=== PATIENT | female | born 1960 | race Caucasian/White ===

== ENCOUNTER 2023-02-16 09:14 | Emergency (ER) | payer OTHER ==
[~2023-02-16] VITALS: Ht 165.1 cm; Wt 77.1 kg
[2023-02-16 09:27] VITALS: BP 159/80
--- NOTE | 2023-02-16 09:33 | NUR ---
PT W/C ASSISTED TO BED 3
--- NOTE | 2023-02-16 09:48 | NUR ---
62YO FEMALE PT C/O INCREASED L HIP PAIN XYESTERDAY. RADIATION TO L LEG. STATES BEING OUT OF RX PERCOCET GIVEN AFTER RECENT HIP FRACTURE SURGERY 1.5MONTH AGO. STATES MISSING PCP APPT D/T RECENT WEATHER. PT AAOX4, NO VISIBLE DISTRESS. WHEELCHAIR ASSISTED TO ROOM. HX: CHRONIC BACK PAIN, ANXIETY, HTN, EPILEPSY, DC(2008) ALLERGIES: QUETIAPINE
--- NOTE | 2023-02-16 10:10 | NUR ---
MD MONTES AT BEDSIDE FOR EVALUATION
[2023-02-16] MEDS ORDERED: oxyCODONE/APAP 5/325 MG 1 TAB TAB PO ONE (10:15)
[2023-02-16] MEDS ORDERED: KETOROLAC 15 MG/ML VIAL IM ONE (10:15)
[2023-02-16] MEDS ORDERED: KETOROLAC 15 MG/ML VIAL ONE (10:17)
[2023-02-16] MEDS ORDERED: oxyCODONE/APAP 5/325 MG 1 TAB TAB ONE (10:18)
--- NOTE | 2023-02-16 11:00 | NUR ---
Patient does not wish to proceed with medical care recommended by MD MONTES. Patient given information related to possible complications, up to and including , which could occur as a result of leaving hospital at this time. Patient verbalizes understanding of risks involved leaving against medical advice. Patient has signed AMA form.
--- NOTE | 2023-02-16 11:00 | NUR ---
PT REFUSING XRAY " I HAVE TO LEAVE D/T EMERGENCY". AWARE. AMA FORM SIGNED BY PT AND
--- NOTE | 2023-02-16 11:06 | NUR ---
The patient's care was reviewed and supervised by [facility], RN.
== END 2023-02-16 11:00 | disposition left against medical advice (07) ==
LOC: MED 09:14
DX: M25.551 Pain in right hip (principal); M25.552 Pain in left hip; I25.2 Old myocardial infarction; I10 Essential (primary) hypertension; F41.9 Anxiety disorder, unspecified; F32.9 Major depressive disorder, single episode, unspecified; Z98.890 Other specified postprocedural states; Z88.8 Allergy status to other drugs, medicaments and biological substances; W18.39XA Other fall on same level, initial encounter; Y92.89 Other specified places as the place of occurrence of the external cause; Y93.89 Activity, other specified; Y99.8 Other external cause status
CPT/HCPCS: 96372; 99283; J1885

== ENCOUNTER 2023-04-02 19:34 | Emergency (ER) | payer OTHER ==
[~2023-04-02] VITALS: Ht 165.1 cm; Wt 78.9 kg
[2023-04-02 20:00] VITALS: BP 126/97
--- NOTE | 2023-04-02 20:03 | NUR ---
TO LOBBY A/ABED AMBULATORY WITH WALKER
[2023-04-02 21:15] LABS: BASOPHILS % (AUTO) 0.6 % (0.0-2.0); EOSINOPHILS # (AUTO) 0.1 K/uL (0-0.4); EOSINOPHILS % (AUTO) 1.6 % (0.0-4.0); HEMATOCRIT 41.8 % (36-48); HEMOGLOBIN 13.7 g/dL (12.0-16.0); LYMPHOCYTES # (AUTO) 3.1 K/uL (2.5-16.5); LYMPHOCYTES % (AUTO) 43.1 % (20.5-51.1); MEAN CORPUSCULAR HEMOGLOBIN 28 pg (27-31); MEAN CORPUSCULAR HGB CONC 33 g/dL (33-37); MEAN CORPUSCULAR VOLUME 83.6 fL (80-94); MONOCYTES # (AUTO) 0.5 K/uL (0.8-1.0); MONOCYTES % (AUTO) 7.3 % (1.7-9.3); NEUTROPHILS # (AUTO) 3.5 K/uL (1.8-7.7); NEUTROPHILS % (AUTO) 47.4 % (42.2-75.2); PLATELET COUNT (AUTO) 278 K/uL (140-450); RED CELL DISTRIBUTION WIDTH 16.3 % (11.6-13.7); WHITE BLOOD COUNT (AUTO) 7.3 K/uL (4.8-10.8)
[2023-04-02] MEDS ORDERED: MORPHINE SULFATE 4 MG/ML SYR IM ONE (21:15)
[2023-04-02] MEDS ORDERED: ONDANSETRON 4 MG ODT PO ONE (21:15)
--- NOTE | 2023-04-02 21:20 | NUR ---
PT AMBULATE TO ROOM 6
[2023-04-02 21:40] LABS: ALBUMIN 3.8 g/dL (3.4-5.0); ANION GAP 15.4 (8-16); ASPARTATE AMINOTRANSFERASE 19 U/L (15-37); CARBON DIOXIDE 25.3 mmol/L (21-32); CHLORIDE 105 mmol/L (98-107); CREATININE 1.3 mg/dL (0.6-1.3); GFR ARICAN-AMERICAN 53 mL/min (>90); GLUCOSE 104 mg/dL (74-106); LIPASE 209 U/L (73-393); POTASSIUM 4.7 mmol/L (3.5-5.1); SODIUM SERUM 141 mmol/L (136-145); UREA NITROGEN, BLOOD 28 mg/dL (7-18)
--- NOTE | 2023-04-02 21:49 | NUR ---
URINE COLLECTED AND SENT TO LAB
[2023-04-02 21:51] LABS: TOTAL BILIRUBIN 0.4 mg/dL (0.0-1.0)
[2023-04-02 21:57] LABS: APPEARANCE,URINE CLEAR (CLEAR); BILIRUBIN,URINE NEGATIVE (NEGATIVE); BLOOD, URINE NEGATIVE (NEGATIVE); COLOR,URINE YELLOW (YELLOW); LEUKOCYTE ESTERASE ,URINE NEGATIVE (NEGATIVE); NITRITE, URINE NEGATIVE (NEGATIVE); PH,URINE 5.5 (5.0-9.0); UGLUCOSE NEGATIVE (NEGATIVE)
[2023-04-02] MEDS ORDERED: oxyCODONE/APAP 5/325 MG 1 TAB TAB PO ONE (23:30)
[2023-04-03] MEDS ORDERED: BEN10 PO (00:22)
[2023-04-03] MEDS ORDERED: LOPE1TAB14 PO (00:22)
[2023-04-03] MEDS ORDERED: BISM262C52 PO (00:22)
[2023-04-03] MEDS ORDERED: ACET-5629 PO (00:23)
[2023-04-03 00:35] VITALS: BP 126/97
--- NOTE | 2023-04-03 00:37 | NUR ---
Patient discharged with v/s stable. Written and verbal after care instructions given and explained. Patient alert, oriented and verbalized understanding of instructions. Ambulatory with steady gait. All questions addressed prior to discharge. ID band removed. Patient advised to follow up with PMD. Rx of OXYCODONE, PEPTOBISMOL, IMODIUM given. Patient educated on indication of medication including possible reaction and side effects. Opportunity to ask questions provided and answered.
== END 2023-04-03 00:37 | disposition home or self-care (01) ==
LOC: MED 19:34
DX: A08.4 Viral intestinal infection, unspecified (principal); Z20.822 Contact with and (suspected) exposure to COVID-19; I10 Essential (primary) hypertension; I25.10 Atherosclerotic heart disease of native coronary artery without angina pectoris; E03.9 Hypothyroidism, unspecified; F41.9 Anxiety disorder, unspecified; E78.00 Pure hypercholesterolemia, unspecified; Z85.89 Personal history of malignant neoplasm of other organs and systems; Z90.710 Acquired absence of both cervix and uterus
CPT/HCPCS: 36415; 71045; 80053; 81003; 83690; 84484; 85025; 87426; 96372; 99284; J2270; Q0162

== ENCOUNTER 2023-04-20 17:29 | Emergency (ER) | payer OTHER ==
[~2023-04-20] VITALS: Ht 167.6 cm; Wt 78.9 kg
[~2023-04-20 17:29] MED LIST: ACET-5629 PO; BEN10 PO; BISM262C52 PO; LOPE1TAB14 PO
[2023-04-20 18:06] VITALS: BP 109/80
--- NOTE | 2023-04-20 18:23 | NUR ---
ASSUMED CARE , POT C/O ANXIETY N/V, HX LEFT FEMOR FX , PT RAN OUT OF PERCOCET 3 =DAYS AGO , NOW C/PO ANXIETY N/V
[2023-04-20] MEDS ORDERED: oxyCODONE/APAP 5/325 MG 1 TAB TAB PO ONE (18:30)
[2023-04-20] MEDS ORDERED: NACL 0.9% 1,000 ML IV ONE (18:30)
[2023-04-20] MEDS ORDERED: ONDANSETRON 4 MG/2 ML VIAL ONE (18:39)
[2023-04-20] MEDS ORDERED: ONDANSETRON 4 MG/2 ML VIAL IVP ONE (18:40)
[2023-04-20 18:44] LABS: BASOPHILS # (AUTO) 0.1 K/uL (0.00-0.22); BASOPHILS % (AUTO) 0.9 % (0.0-2.0); EOSINOPHILS # (AUTO) 0.1 K/uL (0-0.4); EOSINOPHILS % (AUTO) 1.5 % (0.0-4.0); LYMPHOCYTES # (AUTO) 2.6 K/uL (2.5-16.5); MEAN CORPUSCULAR HEMOGLOBIN 27 pg (27-31); MEAN CORPUSCULAR HGB CONC 34 g/dL (33-37); MEAN CORPUSCULAR VOLUME 81.3 fL (80-94); MONOCYTES # (AUTO) 0.6 K/uL (0.8-1.0); MONOCYTES % (AUTO) 8.5 % (1.7-9.3); NEUTROPHILS # (AUTO) 3.4 K/uL (1.8-7.7); NEUTROPHILS % (AUTO) 51.1 % (42.2-75.2); PLATELET COUNT (AUTO) 318 K/uL (140-450); RED BLOOD CELL COUNT(AUTO) 4.79 MIL/uL (4.20-5.40); RED CELL DISTRIBUTION WIDTH 16.3 % (11.6-13.7); WHITE BLOOD COUNT (AUTO) 6.8 K/uL (4.8-10.8)
[2023-04-20 19:00] LABS: ALBUMIN 3.6 g/dL (3.4-5.0); ANION GAP 13.3 (8-16); ASPARTATE AMINOTRANSFERASE 19 U/L (15-37); CARBON DIOXIDE 27.1 mmol/L (21-32); CHLORIDE 101 mmol/L (98-107); GFR ARICAN-AMERICAN 72 mL/min (>90); GLUCOSE 91 mg/dL (74-106); LIPASE 179 U/L (73-393); POTASSIUM 3.4 mmol/L (3.5-5.1); SODIUM SERUM 138 mmol/L (136-145); TOTAL BILIRUBIN 0.3 mg/dL (0.0-1.0); UREA NITROGEN, BLOOD 25 mg/dL (7-18)
[2023-04-20] MEDS ORDERED: POTASSIUM CHLORIDE 20% 40 MEQ/15 ML UDC PO ONE (19:20)
[2023-04-20] MEDS ORDERED: ACET-5629 PO (19:39)
[2023-04-20] MEDS ORDERED: CLON2TAB PO (19:39)
[2023-04-20] MEDS ORDERED: ONDA-188 SL (19:42)
[2023-04-20] MEDS ORDERED: clonazePAM 0.5 MG TAB PO ONE (20:00)
[2023-04-20 20:15] VITALS: BP 150/72
--- NOTE | 2023-04-20 20:15 | NUR ---
Patient discharged with v/s stable. Written and verbal after care instructions given and explained. New rx klonopin, zofran, percocet. Patient verbalized understanding. Ambulatory with steady gait. Accompanied by home. All questions addressed prior to discharge. Advised to follow up with PMD.
[2023-04-21] MEDS ORDERED: ACET-5629 PO (21:30)
[2023-04-21] MEDS ORDERED: CLON2TAB PO (21:30)
== END 2023-04-20 20:15 | disposition home or self-care (01) ==
LOC: MED 17:29
DX: R11.2 Nausea with vomiting, unspecified (principal); R53.1 Weakness; R05.9 Cough, unspecified; I25.2 Old myocardial infarction; I10 Essential (primary) hypertension; E03.9 Hypothyroidism, unspecified; F41.9 Anxiety disorder, unspecified; E78.5 Hyperlipidemia, unspecified; Z86.69 Personal history of other diseases of the nervous system and sense organs; Z85.41 Personal history of malignant neoplasm of cervix uteri; Z86.73 Personal history of transient ischemic attack (TIA), and cerebral infarction without residual deficits; Z98.890 Other specified postprocedural states; Z79.899 Other long term (current) drug therapy; Z88.8 Allergy status to other drugs, medicaments and biological substances
CPT/HCPCS: 36415; 71045; 80053; 82550; 83690; 84484; 85025; 93005; 96361; 96374; 99285; J2405; Q0092

== ENCOUNTER 2023-09-13 17:34 | Emergency (ER) | payer OTHER ==
[~2023-09-13] VITALS: Ht 165.1 cm; Wt 80.3 kg
[~2023-09-13 17:34] MED LIST changes: +CLON-929 PO; +LORA1T1237 PO; +METH4TAB1 PO; +ONDA-188 SL
[2023-09-13 18:20] VITALS: BP 112/74; PULSE 88; RESP 20; TEMP 98; O2SAT 93
[2023-09-13] MEDS ORDERED: oxyCODONE/APAP 5/325 MG 1 TAB TAB PO ONE (18:50)
[2023-09-13] MEDS ORDERED: CEPH500C16 PO (18:53)
[2023-09-13] MEDS ORDERED: DICL100G32 TP (18:53)
[2023-09-13] MEDS ORDERED: ACET-5629 PO (18:53)
[2023-09-13] MEDS ORDERED: [UNRECOGNIZED DRUG - CODE] MM (18:53)
[2023-09-13 19:23] VITALS: BP 112/74; PULSE 88; RESP 20; TEMP 98; O2SAT 93
== END 2023-09-13 19:24 | disposition home or self-care (01) ==
LOC: MED 17:34
DX: G89.29 Other chronic pain (principal); K12.1 Other forms of stomatitis; H00.035 Abscess of left lower eyelid; I11.9 Hypertensive heart disease without heart failure; Z79.899 Other long term (current) drug therapy
CPT/HCPCS: 99283

== ENCOUNTER 2023-10-03 16:48 | Emergency (ER) | payer OTHER ==
[~2023-10-03] VITALS: Ht 165.1 cm; Wt 81.6 kg
[~2023-10-03 16:48] MED LIST changes: +CEPH500C16 PO; +DICL100G32 TP; +[UNRECOGNIZED DRUG - CODE] MM
[2023-10-03 17:08] VITALS: BP 110/74; PULSE 86; RESP 15; TEMP 96.8; O2SAT 95
[2023-10-03] MEDS ORDERED: oxyCODONE/APAP 5/325 MG 1 TAB TAB PO ONE (19:45)
[2023-10-03] MEDS ORDERED: ACET-5629 PO (20:17)
[2023-10-03 20:40] VITALS: BP 110/74; PULSE 86; RESP 15; TEMP 96.8; O2SAT 95
== END 2023-10-03 20:40 | disposition home or self-care (01) ==
LOC: MED 16:48
DX: G89.29 Other chronic pain (principal); M25.552 Pain in left hip; I25.2 Old myocardial infarction; I10 Essential (primary) hypertension; Z86.73 Personal history of transient ischemic attack (TIA), and cerebral infarction without residual deficits; Z86.69 Personal history of other diseases of the nervous system and sense organs; Z86.39 Personal history of other endocrine, nutritional and metabolic disease; Z98.890 Other specified postprocedural states; Z79.899 Other long term (current) drug therapy; Z79.2 Long term (current) use of antibiotics; Z88.8 Allergy status to other drugs, medicaments and biological substances
CPT/HCPCS: 99283

== ENCOUNTER 2023-10-09 12:43 | Emergency (ER) | payer OTHER ==
[~2023-10-09] VITALS: Ht 165.1 cm; Wt 79.4 kg
[2023-10-09 12:54] VITALS: BP 130/77; PULSE 79; RESP 17; TEMP 97.4; O2SAT 98
== END 2023-10-09 13:26 | disposition left against medical advice (07) ==
LOC: MED 12:43
DX: R07.9 Chest pain, unspecified (principal); Z53.21 Procedure and treatment not carried out due to patient leaving prior to being seen by health care provider
CPT/HCPCS: 99281; 99283

== ENCOUNTER 2023-11-11 11:26 | Emergency (ER) | payer MEDICARE, OTHER ==
[~2023-11-11] VITALS: Ht 165.1 cm; Wt 81.6 kg
[~2023-11-11 11:26] MED LIST changes: +CLON-575 PO; -CLON-929 PO
[2023-11-11 12:22] VITALS: BP 115/102; PULSE 101; RESP 20; TEMP 97.7; O2SAT 94; O2SAT 95
[2023-11-11] MEDS ORDERED: CLON-575 PO ×2 (12:53→12:55)
[2023-11-11] MEDS: clonazePAM 0.5 MG TAB PO ONE (13:02)
== END 2023-11-11 13:04 | disposition home or self-care (01) ==
LOC: MED 11:26
DX: F41.9 Anxiety disorder, unspecified (principal); I11.9 Hypertensive heart disease without heart failure; Z86.73 Personal history of transient ischemic attack (TIA), and cerebral infarction without residual deficits; Z88.8 Allergy status to other drugs, medicaments and biological substances; Z79.899 Other long term (current) drug therapy
CPT/HCPCS: 99283

== ENCOUNTER 2023-11-22 12:47 | Emergency (ER) | payer MEDICARE, OTHER ==
[~2023-11-22] VITALS: Ht 160 cm; Wt 80.7 kg
[2023-11-22 12:47] VITALS: BP 150/90; PULSE 73; RESP 16; TEMP 98; O2SAT 96
[2023-11-22 13:45] LABS: BASOPHILS # (AUTO) 0.1 K/uL (0.00-0.22); BASOPHILS % (AUTO) 0.6 % (0.0-2.0); EOSINOPHILS % (AUTO) 0.1 % (0.0-4.0); HEMATOCRIT 36.3 % (36-48); HEMOGLOBIN 12.1 g/dL (12.0-16.0); LYMPHOCYTES # (AUTO) 1.7 K/uL (2.5-16.5); LYMPHOCYTES % (AUTO) 15.1 % (20.5-51.1); MEAN CORPUSCULAR HEMOGLOBIN 30 pg (27-31); MEAN CORPUSCULAR HGB CONC 33 g/dL (33-37); MEAN CORPUSCULAR VOLUME 89.9 fL (80-94); MONOCYTES # (AUTO) 1.1 K/uL (0.8-1.0); MONOCYTES % (AUTO) 9.7 % (1.7-9.3); NEUTROPHILS # (AUTO) 8.2 K/uL (1.8-7.7); NEUTROPHILS % (AUTO) 74.5 % (42.2-75.2); PLATELET COUNT (AUTO) 213 K/uL (140-450); RED BLOOD CELL COUNT(AUTO) 4.04 MIL/uL (4.20-5.40); RED CELL DISTRIBUTION WIDTH 16.7 % (11.6-13.7)
[2023-11-22 14:06] LABS: ANION GAP 11.5 (8-16); CALCIUM 8.8 mg/dL (8.5-10.1); CARBON DIOXIDE 27.6 mmol/L (21-32); CREATININE 0.8 mg/dL (0.6-1.3); POTASSIUM 3.1 mmol/L (3.5-5.1)
[2023-11-22 14:28] LABS: FLU A ANTIGEN negative (NEGATIVE); FLU B ANTIGEN negative (NEGATIVE)
[2023-11-22] MEDS ORDERED: ONDANSETRON 4 MG/2 ML VIAL IVP ONE (14:30)
[2023-11-22] MEDS ORDERED: NACL 0.9% 1,000 ML IV ONE (14:30)
[2023-11-22] MEDS ORDERED: KETOROLAC 30 MG/ML VIAL IVP ONE (14:30)
[2023-11-22 17:46] VITALS: PULSE 72; O2SAT 98
== END 2023-11-22 15:22 | disposition left against medical advice (07) ==
LOC: MED 12:47
DX: U07.1 COVID-19 (principal); I25.2 Old myocardial infarction; J44.9 Chronic obstructive pulmonary disease, unspecified; I10 Essential (primary) hypertension; Z86.69 Personal history of other diseases of the nervous system and sense organs; Z86.73 Personal history of transient ischemic attack (TIA), and cerebral infarction without residual deficits; F41.9 Anxiety disorder, unspecified; Z79.899 Other long term (current) drug therapy; Z79.2 Long term (current) use of antibiotics; Z88.8 Allergy status to other drugs, medicaments and biological substances
CPT/HCPCS: 36415; 71045; 80048; 81002; 83880; 84484; 85025; 93005; 99285